=== PATIENT | male | born 1955 | race Caucasian/White ===

== ENCOUNTER 2021-12-27 06:50 | Emergency (ER) | payer MEDICARE, OTHER ==
[~2021-12-27] VITALS: Ht 180.3 cm; Wt 103.4 kg
--- NOTE | 2021-12-27 06:54 | NUR ---
Harsha guerrero in [facility] - 12/27/21 at 0655 by [facility] pt taken to [facility]
[2021-12-27 06:55] VITALS: BP 138/90
--- NOTE | 2021-12-27 06:55 | NUR ---
pt taken to bed 11
--- NOTE | 2021-12-27 07:13 | NUR ---
Pt report given to ricardo pabon. Transfer of care at this time.
--- NOTE | 2021-12-27 07:13 | NUR ---
Report and continuation of care received from STELLA Fonseca.
--- NOTE | 2021-12-27 07:26 | NUR ---
Dr. Leach is evaluating pt at bedside
--- NOTE | 2021-12-27 07:30 | NUR ---
66 y/o M BIBA from home c/o constipation x 5 days, low back pain radiating to RLE. Patient A&Ox4, ambulatory with walker, states right sided back pain radiating to leg 5 days. Last BM: 5 days ago. Patient reports 8/10 sharp/constant, radiating pain. Denies abd pain, fever, nausea, vomiting, chest pain, SOB. States passing gas; taking prune juice, ASA and Tylenol without relief. Bed locked in lowest position, side rails x 1. PMH: HLD, HTN Meds: Unable to recall NKDA: Sx for erwin
[2021-12-27] MEDS ORDERED: MAGNESIUM CITRATE 300 ML BTL PO ONE (07:35)
[2021-12-27] MEDS ORDERED: KETOROLAC 60 MG/2 ML VIAL IM ONE (07:35)
[2021-12-27] MEDS ORDERED: SODIUM PHOSPHATE 118 ML ENEM RC ONE (07:45)
[2021-12-27] MEDS ORDERED: DOCU-299 PO (08:14)
[2021-12-27] MEDS ORDERED: IBUP-2213 PO (08:14)
[2021-12-27] MEDS ORDERED: SENN-74 PO (08:14)
[2021-12-27] MEDS ORDERED: ACET-10509 PO (08:14)
[2021-12-27] MEDS ORDERED: MIRABULK PO (08:14)
--- NOTE | 2021-12-27 08:18 | NUR ---
Patient instructed on bearing down after fleet edema. Patient verbalized understanding.
--- NOTE | 2021-12-27 08:20 | NUR ---
Pt with strong urge to have BM. Wheelchair assisted to toilet at this time. Instructed to continue bearing down until he has to BM.
--- NOTE | 2021-12-27 08:50 | NUR ---
Patient with 1 episode BM liquid
[2021-12-27] MEDS ORDERED: DOCUSATE SODIUM 250 MG GELCAP PO ONE (09:00)
--- NOTE | 2021-12-27 09:03 | NUR ---
Patient discharged to lobby via wheelchair/walker pending James BARBOZA.
[2021-12-27 09:05] VITALS: BP 142/68
--- NOTE | 2021-12-27 09:08 | NUR ---
Patient discharged with v/s stable. Written and verbal after care instructions given and explained. Patient alert, oriented and verbalized understanding of instructions. Wheel Chair Assisted with to home. All questions addressed prior to discharge. ID band removed. Patient advised to follow up with PMD. Rx of Colace, Tylenol, Miralax, Ibuprofen, Senna given. Patient educated on indication of medication including possible reaction and side effects. Opportunity to ask questions provided and answered.
== END 2021-12-27 09:08 | disposition home or self-care (01) ==
LOC: MED 06:50
DX: K59.00 Constipation, unspecified (principal); M54.9 Dorsalgia, unspecified; G89.29 Other chronic pain; I10 Essential (primary) hypertension; E78.5 Hyperlipidemia, unspecified; Z79.899 Other long term (current) drug therapy
CPT/HCPCS: 74018; 96372; 99284; J1885; Q0092

== ENCOUNTER 2022-02-24 19:02 | Emergency (ER) | payer MEDICARE ==
[~2022-02-24] VITALS: Ht 180.3 cm; Wt 81.6 kg
[~2022-02-24 19:02] MED LIST: ACET-10509 PO; DOCU-299 PO; IBUP-2213 PO; MIRABULK PO; SENN-74 PO
[2022-02-24 19:06] VITALS: BP 134/85
--- NOTE | 2022-02-24 19:30 | NUR ---
PT BIBA FOR GEBNERALIZED WEAKNESS AND FALLS, PT STATES THAT HIS RIGHT LEG HAS BEEN "GIVING OUT" WHICH HAS BEEN MAKING HIM FALL SEVERAL TIMES A DAY. PT HAS MULTIPLE ABRASIONS AND BRUISING ON BILATERAL ARMS, PT SAID HE FELL GETTING OFF THE TOILET AND WOKE UP ON THE FLOOR, +LOC. PT PLACED I A GOWN AND ON DRAW STRING KNOTTER.
[2022-02-24] MEDS ORDERED: MORPHINE SULFATE 4 MG/ML SYR IVP ONE (20:20)
[2022-02-24 20:47] LABS: BASOPHILS # (AUTO) 0.1 K/uL (0.00-0.22); BASOPHILS % (AUTO) 0.6 % (0.0-2.0); EOSINOPHILS # (AUTO) 0.1 K/uL (0-0.4); EOSINOPHILS % (AUTO) 1.3 % (0.0-4.0); HEMATOCRIT 37.1 % (36-52); HEMOGLOBIN 12.3 g/dL (12.0-18.0); LYMPHOCYTES # (AUTO) 1.5 K/uL (2.0-11.5); MEAN CORPUSCULAR HEMOGLOBIN 30 pg (27-31); MEAN CORPUSCULAR HGB CONC 33 g/dL (33-37); MEAN CORPUSCULAR VOLUME 89.1 fL (80-94); MONOCYTES # (AUTO) 0.7 K/uL (0.8-1.0); MONOCYTES % (AUTO) 7.8 % (1.7-9.3); NEUTROPHILS # (AUTO) 6.5 K/uL (1.8-7.7); NEUTROPHILS % (AUTO) 73.3 % (42.2-75.2); PLATELET COUNT (AUTO) 328 K/uL (140-450); RED BLOOD CELL COUNT(AUTO) 4.16 MIL/uL (4.20-6.10); RED CELL DISTRIBUTION WIDTH 13.9 % (11.6-13.7); WHITE BLOOD COUNT (AUTO) 8.8 K/uL (4.8-10.8)
[2022-02-24 21:01] LABS: ALBUMIN 3.2 g/dL (3.4-5.0); ANION GAP 13.8 (8-16); CARBON DIOXIDE 27.2 mmol/L (21-32); TOTAL BILIRUBIN 0.4 mg/dL (0.0-1.0)
[2022-02-24] MEDS ORDERED: MORPHINE SULFATE 4 MG/ML SYR ONE (21:30)
[2022-02-24 21:50] LABS: APPEARANCE,URINE CLEAR (CLEAR); BILIRUBIN,URINE NEGATIVE (NEGATIVE); BLOOD, URINE NEGATIVE (NEGATIVE); COLOR,URINE YELLOW (YELLOW); LEUKOCYTE ESTERASE ,URINE NEGATIVE (NEGATIVE); NITRITE, URINE NEGATIVE (NEGATIVE); UGLUCOSE NEGATIVE (NEGATIVE)
--- NOTE | 2022-02-24 22:00 | NUR ---
PT RESTING IN BED, PT STATES HE HAS LESS PAIN WITH MEDICATION.
[2022-02-24] MEDS ORDERED: SIMV-371 PO (23:33)
--- NOTE | 2022-02-25 01:20 | NUR ---
DR MORIS BOLIVAR TO GIVE PT FOOD, PT DENIED ANY FOOD ALLERGIES, TURKEY SANDWICH AND DIET IDRIS GIVEN.
--- NOTE | 2022-02-25 01:22 | NUR ---
PT WILL BE TRANSFERRED TO [facility] PER INSURANCE.
[2022-02-25] MEDS ORDERED: LORazepam 2 MG/ML VIAL IVP ONE (04:30)
--- NOTE | 2022-02-25 05:24 | NUR ---
[facility] TRANSPORT AT BEDSIDE
--- NOTE | 2022-02-25 05:40 | NUR ---
PT TAKEN BY [facility] TO [facility]
[2022-02-25 05:44] VITALS: BP 118/67
--- NOTE | 2022-02-25 05:45 | NUR ---
Patient to be transferred to [facility]. Is being transferred due to INSURANCE. Receiving facility has accepting physician and available space. ER physician has signed transfer form. Patient or responsible democrat has agreed to transfer and signed form. Patient belongings inventoried and will be sent with patient. Copy of nursing notes, lab reports, EKG, Physicians Orders and X-rays to be sent with patient. Report called to RITU DOUGLAS at receiving facility. [facility] ambulance service has been called for transfer. ETA is 25 MIN.
== END 2022-02-25 05:45 | disposition short-term general hospital (02) ==
LOC: MED 19:02
DX: M54.50 Low back pain, unspecified (principal); Z20.822 Contact with and (suspected) exposure to COVID-19; I10 Essential (primary) hypertension; E11.9 Type 2 diabetes mellitus without complications; I25.10 Atherosclerotic heart disease of native coronary artery without angina pectoris; E78.5 Hyperlipidemia, unspecified; F32.A Depression, unspecified; Z79.4 Long term (current) use of insulin; Z79.899 Other long term (current) drug therapy
CPT/HCPCS: 36415; 71045; 72131; 80053; 81003; 83605; 85025; 87040; 87086; 87426; 93005; 96374; 96375; 99285; J2060; J2270